=== PATIENT | male | born 1990 | race Caucasian/White ===

== ENCOUNTER 2017-03-19 13:20 | Emergency (ER) | payer SELFPAY ==
[2017-03-19 13:30] VITALS: BMI 24.6
[2017-03-19 13:42] VITALS: BP 118/74
--- NOTE | 2017-03-19 13:46 | DR.GENAD ---
HPI - PCP Primary Care Physician: NFD - Complaint/Symptoms Chief Complaint Doctors Comments: Patient presents with complaint of left ankle swelling. He states that this occured one day ago. He gives no history of fever ,infection or trauma. He denies a history of cardiopulmonary disease. His gestalt is of chemical dependency. He has multiple skin lesions on face and trunk. His sensorium is slow and deliberate. Chief Complaint:: PT C/O EDEMA TO BOTH OF HIS FEET.. Self Treatment fo Chief Complaint: PT PUT SOME OTC SPRAY - Source History Provided: Patient - Mode of Arrival Mode of Arrival: Ambulatory - Timing Onset of Chief Complaint: 03/19/17 PMH - PMH Past Medical History: No Past Surgical History: No - Family History History of Family Medical Conditions: No - Social History Does patient currently use any type of tobacco product: Yes Have you used tobacco products in the last 12 months: Yes How many years tobacco product used: 15 Does any household member use tobacco: No Alcohol Use: None Do you use any recreational Drugs:: No Lives With: Family Lives Where: Home - infectious screening In the last 2 months have you had wt loss of >10#?: NO Have you had fever, night sweats or hemotysis?: No Have you traveled outside the country in the last 6 months?: No Isolation: Standard ROS - Review of Systems Eyes: No Symptoms Reported ENTM: No Symptoms Reported Respiratoy: No Symptoms Reported Cardiovascular: No Symptoms Reported Gastrointestinal/Abdominal: No Symptoms Reported Genitourinary: No Symptoms Reported Neurological: No Symptoms Reported Musculoskeletal: No Symptoms Reported Integumentary: Lesions (multiple insect like bites on face and trunk) Hematologic/Lymphatic: No Symptoms Reported Endocrine: No Symptoms Reported Psychiatric: No Symptoms Reported All Other Systems: Reviewed and Negative PE - Vital Signs Vitals: Temperature 97.8 F Pulse Rate 62 Respiratory Rate 17 Blood Pressure 118/74 O2 Sat by Pulse Oximetry 99 - General Limitations: No Limitations General Appearance: Alert, Appears Intoxicated - Head Head Exam: Normal Inspection - Eyes Eye exam: Normal Appearance, PERRL, EOMI - ENT ENT Exam: Normal Exam External Ear Exam: Normal External Inspection TM/Canal Exam: Bilateral Normal Nose Exam: Normal Nose Exam Mouth Exam: Normal Inspection Throat Exam: Normal Inspection - Neck Neck Exam: Normal Inspection, Full ROM - Chest Chest Inspection: Normal Inspection - Respiratory Respiratory Exam: Normal Lung Sounds Bilat Respiratory Exam: Bilateral Clear to Auscultation - Cardiovascular Cardiovascular Exam: Regular Rate, Normal Rhythm - Abdominal Exam Abdominal Exam: Normal Inspection Abdominal Tenderness: negative: RUQ, RLQ, LUQ, LLQ, Epigastrium, Suprapubic, Diffuse, Mild, Moderate, Severe, Other - Extremities Extremities Exam: Edema (ankles) - Back Back Exam: Normal Inspection - Neurologic Neurological Exam: Alert, Oriented X3, CN II-XII Intact - Psychiatric Psychiatric Exam: Normal Affect - Skin Skin Exam: Warm, Dry, Intact ROR - Labs Reviewed Result Diagrams: 03/19/17 14:02 03/19/17 14:02 Laboratory: WBC 12.2 X10^3/uL (3.6-10.0) H 03/19/17 14:02 RBC 4.79 X10^6/uL (4.7-6.0) 03/19/17 14:02 Hgb 14.2 g/dL (13.5-18.0) 03/19/17 14:02 Hct 40.7 % (42.0-54.0) L 03/19/17 14:02 MCV 84.8 fL (80.0-100.0) 03/19/17 14:02 MCH 29.6 pg (27.0-34.0) 03/19/17 14:02 MCHC 34.8 g/dL (33.0-35.0) 03/19/17 14:02 RDW 13.2 % (11.6-16.5) 03/19/17 14:02 Plt Count 217 X10^3/uL (150.0-450.0) 03/19/17 14:02 MPV 6.9 fL (7.4-11.0) L 03/19/17 14:02 Neut % 53.1 % (42.0-75.0) 03/19/17 14:02 Lymph % 32.6 % (21.0-51.0) 03/19/17 14:02 [place] % 8.9 % (0.0-13.0) 03/19/17 14:02 Eos % 5.0 % (0.9-2.9) H 03/19/17 14:02 Baso % 0.4 % (0.2-1.0) 03/19/17 14:02 Neut # 6.5 x10^3/uL (2.2-4.8) H 03/19/17 14:02 Lymph # 4.0 X10^3/uL (1.3-2.9) H 03/19/17 14:02 [place] # 1.1 x10^3/uL (0.3-0.8) H 03/19/17 14:02 Eos # 0.6 x10^3/uL (0.0-0.2) H 03/19/17 14:02 Baso # 0.0 X10^3/uL (0.0-0.1) 03/19/17 14:02 Absolute Nucleated RBC 0.0 /100WBC 03/19/17 14:02 Sodium 139 mmol/L (136-145) 03/19/17 14:02 Corrected Sodium TNP 03/19/17 14:02 Potassium 3.4 mmol/L (3.5-5.1) L 03/19/17 14:02 Chloride 103 mmol/L (98-107) 03/19/17 14:02 Carbon Dioxide 27.4 mmol/L (21-32) 03/19/17 14:02 BUN 7 mg/dL (7-18) 03/19/17 14:02 Creatinine 0.84 mg/dL (0.70-1.30) 03/19/17 14:02 Est GFR (MDRD) Af Amer > 60 (>60) 03/19/17 14:02 Est GFR (MDRD) Non-Af > 60 (>60) 03/19/17 14:02 Glucose 94 mg/dL (65-99) 03/19/17 14:02 Calcium 8.7 mg/dL (8.5-10.1) 03/19/17 14:02 C-Reactive Protein 5.50 mg/L (0-3.0) H 03/19/17 14:02 Specimen Type Clean catch urine 03/19/17 14:08 Urine Color Yellow (YELLOW) 03/19/17 14:08 Urine Appearance Slightly hazy (CLEAR) 03/19/17 14:08 Urine pH 6.0 (5.0 - 8.0) 03/19/17 14:08 Ur Specific [place] 1.020 (1.000-1.030) 03/19/17 14:08 Urine Protein 2+ (NEGATIVE) 03/19/17 14:08 Urine Glucose (UA) Negative (NEGATIVE) 03/19/17 14:08 Urine Ketones 2+ (NEGATIVE) 03/19/17 14:08 Urine Occult Blood 1+ (NEGATIVE) 03/19/17 14:08 Urine Nitrite Negative (NEGATIVE) 03/19/17 14:08 Urine Bilirubin 1+ (NEGATIVE) 03/19/17 14:08 Urine Urobilinogen 3+ (NORMAL) 03/19/17 14:08 Ur Leukocyte Esterase 1+ (NEGATIVE) 03/19/17 14:08 Urine RBC 01 - 03 /HPF (NEGATIVE) 03/19/17 14:08 Urine WBC 02 - 05 /HPF (NEGATIVE) 03/19/17 14:08 Ur Squamous Epith Cells Few /HPF (NEGATIVE) 03/19/17 14:08 Amorphous Sediment 1+ /HPF (NEGATIVE) 03/19/17 14:08 Urine Bacteria Negative /HPF (NEGATIVE) 03/19/17 14:08 Urine Mucus Moderate /HPF (NEGATIVE) 03/19/17 14:08 Ur Culture Indicated? No/not indicated 03/19/17 14:08 Urine Opiates Screen Negative (NEG=<300) 03/19/17 14:08 Urine Methadone Screen Negative (NEG=<300) 03/19/17 14:08 Ur Barbiturates Screen Negative (NEG=<200) 03/19/17 14:08 Ur Phencyclidine Scrn Negative (NEG=<25) 03/19/17 14:08 Ur Amphetamines Screen Positive (NEG=<1000) 03/19/17 14:08 U Benzodiazepines Scrn Negative (NEG=<200) 03/19/17 14:08 Urine Cocaine Screen Negative (NEG=<300) 03/19/17 14:08 U Marijuana (THC) Screen Positive (NEG=<50) A 03/19/17 14:08 - XRAY XRAY Interpreted by: Radiologist (Chest: no acute cardiopulmonary disease) - Diagnosis Discharge Problem: Illicit drug use Arthralgia of ankle Qualifiers: Laterality: bilateral Qualified Code(s): M25.571 - Pain in right ankle and joints of right foot; M25.572 - Pain in left ankle and joints of left foot Cellulitis Qualifiers: Site of cellulitis: face Qualified Code(s): L03.211 - Cellulitis of face - Discharge Plan Condition: Stable - Follow ups/Referrals Follow ups/Referrals: NFD,None [Primary Care Provider] - 3 days - Instructions
[2017-03-19 14:15] LABS: BASOPHILS % (AUTO) 0.4 % (0.2-1.0); EOSINOPHILS # (AUTO) 0.6 x10^3/uL (0.0-0.2); HEMATOCRIT 40.7 % (42.0-54.0); HEMOGLOBIN 14.2 g/dL (13.5-18.0); LYMPHOCYTES % (AUTO) 32.6 % (21.0-51.0); MEAN CORPUSCULAR HEMOGLOBIN 29.6 pg (27.0-34.0); MEAN CORPUSCULAR HGB CONC 34.8 g/dL (33.0-35.0); MEAN CORPUSCULAR VOLUME 84.8 fL (80.0-100.0); MEAN PLATELET VOLUME 6.9 fL (7.4-11.0); MONOCYTES # (AUTO) 1.1 x10^3/uL (0.3-0.8); MONOCYTES % (AUTO) 8.9 % (0.0-13.0); NEUTROPHILS # (AUTO) 6.5 x10^3/uL (2.2-4.8); NEUTROPHILS % (AUTO) 53.1 % (42.0-75.0); PLATELET COUNT 217 X10^3/uL (150.0-450.0); RED BLOOD COUNT 4.79 X10^6/uL (4.7-6.0); RED CELL DISTRIBUTION WIDTH 13.2 % (11.6-16.5); WHITE BLOOD COUNT 12.2 X10^3/uL (3.6-10.0)
[2017-03-19 14:20] LABS: BILIRUBIN,URINE 1+ (NEGATIVE); BLOOD/HEMOGLOBIN,URINE 1+ (NEGATIVE); GLUCOSE, URINE NEGATIVE (NEGATIVE); KETONES,URINE 2+ (NEGATIVE); LEUKOCYTE ESTERASE ,URINE 1+ (NEGATIVE); NITRITES,URINE NEGATIVE (NEGATIVE); PROTEIN,URINE 2+ (NEGATIVE); UROBILINOGEN,URINE 3+ (NORMAL)
[2017-03-19 14:22] LABS: BLOOD UREA NITROGEN 7 mg/dL (7-18); CALCIUM 8.7 mg/dL (8.5-10.1); CARBON DIOXIDE 27.4 mmol/L (21-32); CHLORIDE 103 mmol/L (98-107); CREATININE 0.84 mg/dL (0.70-1.30); GLUCOSE 94 mg/dL (65-99); SODIUM 139 mmol/L (136-145); eGFR BLACK RACES > 60 (>60); eGFR NON BLACK RACES > 60 (>60)
[2017-03-19 14:37] LABS: APPEARANCE,URINE SLIGHTLY HAZY (CLEAR); COLOR,URINE YELLOW (YELLOW)
[2017-03-19 14:38] LABS: AMORPHOUS SEDIMENT,UR 1+ /HPF (NEGATIVE); BACTERIA,URINE NEGATIVE /HPF (NEGATIVE); MUCUS,URINE MODERATE /HPF (NEGATIVE); SQUAMOUS EPITHELIAL CELL,UR FEW /HPF (NEGATIVE)
--- NOTE | 2017-03-19 16:15 | RAD ---
History: Ankle swelling and pain Technique: Three views of the left ankle Comparison:NONE Findings: There is generalized soft tissue swelling, most prominent along the medial aspect of the ankle. No a cute fracture or dislocation is demonstrated. Impression: 1. No acute osseous abnormalities identified. 2. Generalized soft tissue swelling, most prominent along the medial aspect of the ankle. This is no nspecific. In the setting of acute trauma and medial ankle pain, this would suggest ligamentous inju ry/ankle sprain however clinical correlation is required. Reported By:
--- NOTE | 2017-03-19 17:02 | RAD ---
HISTORY: Edema Study: PA and lateral views of the chest Comparison:NONE Findings: The lungs are clear. No consolidation. There are no pleural effusions. The ofe and cardiomediastinal silhouette appear normal. IMPRESSION: 1. No radiographic evidence of an acute cardiopulmonary process. Reported By:
== END 2017-03-19 15:20 | disposition home or self-care (01) ==
LOC: ER 13:29
DX: F19.90 Other psychoactive substance use, unspecified, uncomplicated (principal); L03.211 Cellulitis of face; M25.571 Pain in right ankle and joints of right foot; M25.572 Pain in left ankle and joints of left foot
CPT/HCPCS: 36415; 71020; 73610; 80048; 80307; 81001; 85025; 86140; 87040; 99283; G0434